=== PATIENT | female | born 1995 | race American Indian/Alaskan Native ===

== ENCOUNTER 2021-07-29 17:14 | Emergency (ER) | payer SELFPAY ==
[2021-07-29 20:39] VITALS: BP 102/65
[2021-07-29 23:46] LABS: Basophils % (Auto) 0.5 % (0.0-1.8); Eosinophils % (Auto) 0.1 % (0.0-4.3); Hematocrit 38.5 % (30.3-42.9); Hemoglobin 12.8 gm/dl (10.1-14.3); Lymphocytes % (Auto) 15.8 % (13.4-35.0); Mean Corpuscular HGB Conc 33 % (30-34); Mean Corpuscular Volume 87 fl (79-97); Monocytes # (Auto) 0.6 K/mm3 (0.0-0.8); Monocytes % (Auto) 10.6 % (0.0-7.3); Platelet Count 184 K/mm3 (140-440); Red Blood Count 4.46 M/mm3 (3.65-5.03); Red Cell Distribution Width 12.6 % (13.2-15.2)
[2021-07-29 23:54] LABS: Mucus,Urine 3+ /HPF
[2021-07-30 00:03] LABS: Bilirubin,Urine Negative (Negative); Color,Urine Yellow (Yellow)
[2021-07-30 00:04] LABS: Blood,Urine Negative (Negative); Urobilinogen,Urine < 2.0 mg/dL (<2.0)
[2021-07-30 00:05] LABS: Alanine Aminotransferase 9 units/L (7-56); Albumin 4.4 g/dL (3.9-5); Blood Urea Nitrogen 11 mg/dL (7-17); Calcium 9.6 mg/dL (8.4-10.2); Hemolysis Index 23
[2021-07-30 00:08] LABS: BUN/Creatinine Ratio 18
[2021-07-30] MEDS ORDERED: METOCLOPRAMIDE 10 MG/2 ML INJ IV STA (02:24)
[2021-07-30] MEDS ORDERED: PYRIDOXINE 50 MG TAB PO STA (02:24)
[2021-07-30] MEDS ORDERED: diphenhydrAMINE 50 MG/ML VIAL IV STA (02:24)
[2021-07-30] MEDS ORDERED: SODIUM CHLORIDE 0.9% 1000 ML 1,000 ML IV ONE (02:24)
--- NOTE | 2021-07-30 03:35 | Emergency Department Report ---
ED General Adult HPI - General Chief complaint: Nausea/Vomiting/Diarrhea Stated complaint: 8WKS /DEHYDRATED Time Seen by Provider: 07/30/21 02:24 Source: patient Mode of arrival: Ambulatory Limitations: No Limitations - History of Present Illness Initial comments: 26-year-old F female with medical reported being 8 weeks and having issues with nausea and vomiting since the onset of . She reports some mild weakness and occasional presyncope reports no hemoptysis symptoms hematochezia, no fever, chills, sweats. No constipation, no diarrhea. -: Gradual Consistency: constant Improves with: none Worsens with: none Associated Symptoms: denies other symptoms. denies: chest pain, diaphoresis, loss of appetite, malaise, shortness of breath - Related Data Previous Rx's Medication Instructions Recorded Last Taken Type Doxylamine Succinate/Vit B6 1 each PO BID #30 07/30/21 Unknown Rx [Diclegis Dr 10-10 mg Tablet] Pnv,Calcium 72/Iron,Carb/Folic 1 each PO DAILY #30 07/30/21 Unknown Rx [ Plus Iron Tablet] Allergies Allergy/AdvReac Type Severity Reaction Status Date / Time No Known Allergies Allergy Verified 07/29/21 20:40 ED Review of Systems ROS: Stated complaint: 8WKS /DEHYDRATED Other details as noted in HPI Comment: All other systems reviewed and negative ED Past Medical Hx - Medications Home Medications: Home Medications Medication Instructions Recorded Confirmed Last Taken Type Doxylamine Succinate/Vit B6 1 each PO BID #30 07/30/21 Unknown Rx [Diclegis Dr 10-10 mg Tablet] Pnv,Calcium 72/Iron,Carb/Folic 1 each PO DAILY #30 07/30/21 Unknown Rx [ Plus Iron Tablet] ED Physical Exam - General Limitations: No Limitations General appearance: alert, in no apparent distress - Head Head exam: Present: atraumatic, normocephalic - Eye Eye exam: Present: normal appearance, PERRL, EOMI Pupils: Present: normal accommodation - ENT ENT exam: Present: mucous membranes moist - Neck Neck exam: Present: normal inspection, full ROM - Respiratory Respiratory exam: Present: normal lung sounds bilaterally. Absent: respiratory distress, rhonchi, accessory muscle use, prolonged expiratory - Cardiovascular Cardiovascular Exam: Present: regular rate, normal rhythm. Absent: systolic murmur, diastolic murmur, rubs, gallop - GI/Abdominal GI/Abdominal exam: Present: soft, normal bowel sounds - Extremities Exam Extremities exam: Present: normal inspection - Back Exam Back exam: Present: normal inspection - Neurological Exam Neurological exam: Present: alert, oriented X3 - Psychiatric Psychiatric exam: Present: normal affect, normal mood - Skin Skin exam: Present: warm, dry, intact, normal color. Absent: rash ED Course Vital Signs 07/29/21 20:06 Temperature 98.5 F Pulse Rate 87 Respiratory 18 Rate Blood Pressure 102/65 O2 Sat by Pulse 99 Oximetry ED Medical Decision Making - Lab Data Result diagrams: 07/29/21 20:52 07/29/21 20:52 - Medical Decision Making Female presents emergency department complaining of nausea and vomiting without diarrhea. The patient is overall well-appearing and suspected to have hyperemesis gravidarum. Given the history of examination he does not appear to be an emergency cause for the symptoms such as small bowel obstruction, coronary syndrome, bowel ischemia, DKA, pancreatitis, appendicitis, acute abdomen no emergent problem. Patient was treated with Reglan, Benadryl, fluids as well as vitamin D6. After treatment patient is feeling much better tolerating p.o. fluids shows no signs of dehydration Critical care attestation.: If time is entered above; I have spent that time in minutes in the direct care of this critically ill patient, excluding procedure time. ED Disposition Clinical Impression: Hyperemesis gravidarum Disposition: 01 HOME / SELF CARE / HOMELESS Is pt being admited?: No Does the pt Need Aspirin: No Condition: Stable Instructions: Hyperemesis Gravidarum, Morning Sickness Prescriptions: Doxylamine Succinate/Vit B6 [Kees[place] Dr 10-10 mg Tablet] 1 each PO BID #30 Pnv,Calcium 72/Iron,Carb/Folic [ Plus Iron Tablet] 1 each PO DAILY #30 Referrals: [facility] [Provider Group] - 3-5 Days
== END 2021-07-30 05:15 | disposition home or self-care (01) ==
LOC: ED 17:14
DX: O21.0 Mild hyperemesis gravidarum (principal); Z3A.08 8 weeks gestation of pregnancy
CPT/HCPCS: 36415; 80053; 81001; 84702; 85025; 96361; 96374; 96375; 99283; J1200; J2765; J7030